=== PATIENT | male | born 1950 | race Caucasian/White ===

== ENCOUNTER 2017-09-02 18:53 | Emergency (ER) | payer BC ==
[~2017-09-02 18:53] MED LIST: ASPI325T6 PO; ASPIRIN 81M81 MG/TA2 PO; CELEBREX 200MG200 MG PO; FOLIC ACID 40400 MCG PO; IPRATROPIUM BROM3 M1 IH; IRON325 M1 PO; LEVAQUIN 750MG750 M1 PO; MULTIPLE VITAMI1 CAP PO; NORCO 325 MG-7.1 TAB PO; PRILOSEC 20MG20 MG PO; SYNTHROID0.088 MG/T PO; VITAMIN C500 MG PO
[2017-09-02 18:56] VITALS: TEMP 98.6
[2017-09-02] MEDS ORDERED: LEXAPRO 10MG10 MG PO (19:11)
[2017-09-02 22:54] VITALS: BP 135/76; PULSE 76
== END 2017-09-02 22:54 | disposition home or self-care (01) ==
LOC: COL.ER 18:53
DX: T18.128A Food in esophagus causing other injury, initial encounter (principal); R10.13 Epigastric pain; Z87.19 Personal history of other diseases of the digestive system; Z79.82 Long term (current) use of aspirin
CPT/HCPCS: C1769; J2250; J2405; J3010; J7030

== ENCOUNTER 2020-02-28 18:30 | Emergency (ER) | payer BC ==
[~2020-02-28] VITALS: Ht 193 cm; Wt 131.8 kg
[~2020-02-28 18:30] MED LIST changes: +LEXAPRO 10MG10 MG PO
[2020-02-28 18:34] VITALS: TEMP 97.9
[2020-02-28 19:32] VITALS: BP 178/111; PULSE 81
== END 2020-02-28 19:35 | disposition home or self-care (01) ==
LOC: COL.ER 18:30
DX: S93.601A Unspecified sprain of right foot, initial encounter (principal); E03.9 Hypothyroidism, unspecified; F41.9 Anxiety disorder, unspecified; Z79.82 Long term (current) use of aspirin; Z79.890 Hormone replacement therapy; X50.9XXA Other and unspecified overexertion or strenuous movements or postures, initial encounter